=== PATIENT | male | born 1945 | race Caucasian/White ===

== ENCOUNTER 2016-05-06 06:35 | Day surgery (SDC) | payer MEDICARE, OTHER ==
[~2016-05-06 06:35] MED LIST: AMIODARONE HCL200 M1 PO; ASPIR 8181 M1 PO; BENADRYL ALLERG25 M1 PO; BISACODYL5 M1 PO; CERTAVITE SR-A1 EACH PO; COREG25 M1 PO; CPAP; CYANOCOBAL1000 MCG/3 SC; DYMISTA NASAL S23 G1; HUMALOG100 UNIT/2 SC; HUMALOG100 UNITS/ SC; HYDROCODON-ACE1 EA15 PO; LEVEMIR100 UNITS/ SC; LORCET HD 10-31 EACH PO; LYRICA75 MG/CAP PO; MIRAPEX0.125 M1 PO; MIRAPEX0.25 M1 PO; NOVOLOG; PREDNISONE50 M1 PO; PROZAC10 M1 PO; PUMP; SENEXON-S TABL1 EAC1 PO; TERAZOSIN HCL5 MG PO; TYLENOL325 M2 PO; VITAMIN C500 M3 PO; VITAMIN D35000 UNI2 PO
[2016-05-06 08:00] LABS: INR 0.9 INR (0.9-1.1)
[2016-05-06 08:04] LABS: HCT-HEMATOCRIT 36.1 % (36.0-53.5); HGB-HEMOGLOBIN 11.8 gm/dl (13.5-17.0); IMMATURE GRANULOCYTES ABSOLUTE 0.01 tho/cmm (0-0.03); IMMATURE GRANULOCYTES PERCENT 0.2 % (0-0.3); LYMPH % 14.9 % (20-45); LYMPH ABSOLUTE COUNT 0.7 tho/cmm (0.8-4.5); MCH (MEAN CORPUSCULAR HGB) 29.5 pg (28.0-32.0); MCHC MEAN CORPUSCULAR HGB CONC 32.7 % (32.0-36.0); MCV (MEAN CELL VOLUME) 90.3 fl (82.0-96.0); MEAN PLATELET VOLUME 10.1 cmc (9.4-12.4); MONO % 0.2 % (0-12); NEUTROPHIL ABSOLUTE COUNT 4.1 tho/cmm (1.6-8.0); NEUTROPHIL-AUTOMATED 4.1 tho/cmm (1.6-8.0); NEUTROPHILS % 84.7 % (40-80); PLATELET COUNT 243 tho/cmm (150-450); RED CELL DISTRIBUTION WIDTH 13.9 % (12.4-16.4); WHITE BLOOD COUNT 4.8 tho/cmm (4.0-10.0)
[2016-05-06] MEDS ORDERED: MIRALAX17 G2 PO (08:26)
[2016-05-06] MEDS ORDERED: DYMISTA NASAL S23 G1 (08:32)
== END 2016-05-06 10:10 ==
LOC: SHSA 06:35
PROVIDERS: Radiology Diagnostic Radiology
PROC: B02B1ZZ Computerized Tomography (CT Scan) of Spinal Cord using Low Osmolar Contrast (ICD-10-PCS; principal; 2016-05-06)
DX: M54.2 Cervicalgia (principal); Z79.4 Long term (current) use of insulin; Z79.82 Long term (current) use of aspirin; Z79.899 Other long term (current) drug therapy; Z91.018 Allergy to other foods; Z91.040 Latex allergy status; Z98.1 Arthrodesis status; Z98.890 Other specified postprocedural states
CPT/HCPCS: J7030; J7512; Q9967

== ENCOUNTER 2016-07-15 12:25 | Day surgery (SDC) | payer MEDICARE, OTHER ==
[~2016-07-15 12:25] MED LIST changes: +MIRALAX17 G2 PO
== END 2016-07-15 17:40 ==
LOC: SHSC 12:25
PROC: B02B1ZZ Computerized Tomography (CT Scan) of Spinal Cord using Low Osmolar Contrast (ICD-10-PCS; principal; 2016-07-15)
DX: M48.06 Spinal stenosis, lumbar region (principal); M47.816 Spondylosis without myelopathy or radiculopathy, lumbar region; Z79.82 Long term (current) use of aspirin; Z91.041 Radiographic dye allergy status
CPT/HCPCS: J7030; Q9966